=== PATIENT | female | born 1995 | race Caucasian/White ===

== ENCOUNTER 2017-04-26 13:14 | Day surgery (SDC) | payer OTHER ==
[2017-04-26] MEDS ORDERED: ONDANSETRON 4 MG/2 ML VIAL ONE ×2 (13:24→13:49)
[2017-04-26] MEDS ORDERED: DEXAMETHASONE 4 MG/ML VIAL IVP ONE ×2 (13:33)
--- NOTE | 2017-04-26 13:33 | EDPHY ---
H & P Time Seen by Provider: 04/26/17 13:25 HPI/ROS: CHIEF COMPLAINT: Post-tonsillectomy bleed HISTORY OF PRESENT ILLNESS: [Location, Duration, Severity, Quality, Context, Timing Modifying Factors, Associated S&S] This patient is a 22 year old female post-op day [] following a tonsillectomy complaining of [] onset []. 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 REVIEW OF SYSTEMS: Constitutional: No fever, no chills Eyes: No visual changes ENT: No sore throat Respiratory: No cough, no shortness of breath Cardiac: No chest pain Gastrointestinal: No nausea, no vomiting, no abdominal pain Genitourinary: No hematuria, no dysuria Musculoskeletal: No leg pain or swelling Skin: No rash Neurological: No headache, no numbness, no weakness Psychiatric: No depression Adult Physical General Appearance: Alert, no distress Eyes: Pupils equal and round, no conjunctival pallor or injection ENT, Mouth: Mucous membranes moist Neck: Normal inspection Respiratory: Lungs are clear to auscultation Cardiovascular: Regular rate and rhythm Gastrointestinal: Abdomen is soft and non- tender Neurological: A&O, nonfocal, normal gait Skin: Warm and dry, no rash Extremities: Nontender, no pedal edema Psychiatric: Mood and affect normal Smoking Status: Never smoked Constitutional: Initial Vital Signs Temperature (C) 36.8 C 04/26/17 13:15 Heart Rate 128 H 04/26/17 13:15 Respiratory Rate 18 04/26/17 13:15 Blood Pressure 134/99 H 04/26/17 13:15 O2 Sat (%) 95 04/26/17 13:15 Allergies/Adverse Reactions: No Known Allergies Allergy (Unverified 04/26/17 13:19) Departure - Departure Referrals: Antwon Bell MD [Primary Care Provider] - As per Instructions Report Scribed for: Laurie Abreu Report Scribed by: Anastasia Aguirre Date of Report: 04/26/17 Time of Report: 13:26 Physician Review and Approval Statement: 04/26/17 13:26 Portions of this note were transcribed by a medical records administrator. I personally performed a history, physical exam, medical decision making, and confirmed accuracy of information the transcribed note.
[2017-04-26] MEDS ORDERED: DEXAMETHASONE 4 MG/ML VIAL ONE (13:49)
[2017-04-26] MEDS ORDERED: fentaNYL 100 MCG/2 ML INJ ONE (13:50)
[2017-04-26] MEDS ORDERED: MEPERIDINE 25 MG/ML SYR IVP PRN (14:10)
[2017-04-26] MEDS ORDERED: OXYCODONE/APAP 5/325 TAB PO PRN (14:10)
[2017-04-26] MEDS ORDERED: fentaNYL 100 MCG/2 ML INJ IVP PRN (14:10)
[2017-04-26] MEDS ORDERED: HYDROmorphONE/DILAUDID 1 MG/ML SYR IVP PRN (14:10)
[2017-04-26] MEDS ORDERED: ONDANSETRON 4 MG/2 ML VIAL IVP PRN (14:10)
[2017-04-26] MEDS ORDERED: DEXAMETHASONE 4 MG/ML VIAL IVP PRN (14:10)
[2017-04-26] MEDS ORDERED: LR 500 ML IV PRN (14:10)
[2017-04-26] MEDS ORDERED: NALOXONE HCL 0.4 MG/ML INJ IVP PRN (14:10)
[2017-04-26] MEDS ORDERED: HYDROCOD/APAP 7.5/325 IN 15ML UDCUP PO PRN (14:34)
[2017-04-26] MEDS ORDERED: HYDROmorphONE/DILAUDID 1 MG/ML SYR ONE (14:36)
--- NOTE | 2017-04-26 14:40 | PDANEPAE ---
ANE History of Present Illness Ms. 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 She has had CDiff since 03/25/2017 as a result of chronic antibiotic treatment of strep throat since 11/2016. She had mild nausea with last anesthetic. Transferred emergently from ER to OR due to bleeding. ANE Past Medical History - Pulmonary History Hx Oxygen in Use at Home: No - Endocrine History Hx Diabetes: No ANE Patient History - Allergies Allergies/Adverse Reactions: No Known Allergies Allergy (Unverified 04/26/17 13:19) - Smoking Hx Smoking Status: Never smoked ANE Labs/Vital Signs - Vital Signs Blood Pressure: 135/96 Heart Rate: 110 Respiratory Rate: 16 O2 Sat (%): 99 Height: 172.72 cm Weight: 74.843 kg ANE Physical Exam - Airway Neck exam: FROM Mallampati Score: Class 1 Mouth exam: normal dental/mouth exam - Pulmonary Pulmonary: no respiratory distress - Cardiovascular Cardiovascular: regular rate and rhythym - ASA Status ASA Status: I, E ANE Anesthesia Plan Anesthesia Plan: general endotracheal anesthesia Urgent/Emergent Case: Khushbu menchaca completed preop but documented later for safe timely pt care (RSI, Emergent bleed)
--- NOTE | 2017-04-26 14:41 | POSTANESTH ---
Post Anesthetic Evaluation Cardiovascular Status: Normal, Stable Respiratory Status: Normal, Stable Level of Consciousness/Mental Status: Can Participate in Eval Pain Control: Adequate, Prn Tx Ordered Nausea/Vomiting Control: Adequate, Prn Tx Ordered Complications Possibly Related to Anesthesia: None Noted
--- NOTE | 2017-04-26 14:43 | POSTOPPROG ---
Post Op Note Date of Operation: 04/26/17 Surgeon: Antwon Bell Construction Engineer: none Anesthesia: GET(General Endotracheal) Pre-op Diagnosis: post tonsil bleed Post-op Diagnosis: same Procedure: eua controll of post tonsil bleed Inf/Abcess present in the surg proc area at time of surgery?: No Depth: Superfical (Skin SQ) EBL: 50-100 Total fluids administered: 600 Specimen(s): none
[2017-04-26] MEDS ORDERED: SCOPOLAMINE HYDROBROMIDE 1.5 MG PATCH TD SCH (14:45)
[2017-04-26 14:49] VITALS: PULSE 103
[2017-04-26] MEDS ORDERED: SCOPOLAMINE HYDROBROMIDE 1.5 MG PATCH TD ONE (14:51)
[2017-04-26 16:12] VITALS: BP 134/89
[2017-04-26 16:37] VITALS: RESP 21; O2SAT 94
[2017-04-26 16:41] VITALS: TEMP 97.9
--- NOTE | 2017-04-26 22:29 | GOP ---
[f rep st] OPERATIVE REPORT DATE OF OPERATION: 04/26/2017 SURGEON: Mauricio Bell MD ANESTHESIA: General endotracheal. PREOPERATIVE DIAGNOSIS: Post tonsillectomy hemorrhage. POSTOPERATIVE DIAGNOSIS: Post tonsillectomy hemorrhage. PROCEDURE PERFORMED: Examination under anesthesia with control of post tonsillectomy hemorrhage. FINDINGS: Right inferior tonsillar fossa arterial bleeder, treated with suction and Bovie electroca utery. ESTIMATED BLOOD LOSS: 50 mL. DESCRIPTION OF PROCEDURE: The patient was placed on the operating table in supine position. After induction of adequate general endotracheal anesthesia, sterile drape was performed. Sterile eye pad s and head drape were placed. A shoulder roll was placed between the patient's shoulders to extend the neck. The Aleksandar-Ramy mouth gag was inserted over the previously placed endotracheal tube with care given to maintain the tube's correct depth. The Aleksandar-Ramy mouth gag was then opened. No act twila bleeding was noted. A small amount of clot was suctioned from the mid tonsillar pole on the rig ht. Mid tonsillar fossa no bleeding was noted. As the suction was advanced further inferiorly, a c lot was removed and brisk bleeding ensued. A tonsil sponge was placed over the bleeding site. The suction Bovie electrocautery was then used to cauterize the bleeder. In addition, the Bovie electro cautery was used to treat the vessel as well. Once this was completed, an orogastric tube was passe d. The patient's gastric contents were aspirated. A large amount of old black blood was aspirated. At this point, sterile saline was irrigated through the NG tube and then re-aspirated until all re turn was clear. At this point, infiltration of the right tonsillar fossa with 0.25% Marcaine soluti on was performed. A total of 6 mL were injected with care given the avoidance of intravascular inje ction. At this point, the Aleksandar-Ramy mouth gag was again let down for approximately 1 minute and n o bleeding was noted from either the original site of hemorrhage or the injection site. The patient was then awakened, transferred to postanesthesia recovery in stable condition. FLUID REPLACEMENT: 600 mL. COMPLICATIONS: None. /[id number]/MODL
[2017-04-29] MEDS ORDERED: PATCH REMOVAL 1 EA PATCH TD SCH (14:36)
== END 2017-04-26 16:35 | disposition home or self-care (01) ==
LOC: FSGY 14:16
PROVIDERS: ATTEND Otolaryngology
PROC: 0W337ZZ Control Bleeding in Oral Cavity and Throat, Via Natural or Artificial Opening (ICD-10-PCS; principal; 2017-04-26 13:30)
DX: J95.830 Postprocedural hemorrhage of a respiratory system organ or structure following a respiratory system procedure (principal)
CPT/HCPCS: J1100; J1170; J2405; J3010